=== PATIENT | female | born 1990 | race Caucasian/White ===

== ENCOUNTER 2020-04-16 00:18 | Outpatient (CLI) | payer OTHER, SELFPAY ==
[2020-04-16 18:34] LABS: SARS-CoV-2 RNA PCR Negative
== END 2020-04-16 00:19 | disposition home or self-care (01) ==
LOC: ANHCOVIDDT 00:18
PROVIDERS: Visit Provider Obstetrics & Gynecology Gynecology
DX: Z01.812 Encounter for preprocedural laboratory examination (principal); Z20.828 Contact with and (suspected) exposure to other viral communicable diseases
CPT/HCPCS: 87635; C9803; U0003

== ENCOUNTER 2020-04-19 00:58 | Day surgery (SDC) | payer OTHER, SELFPAY ==
[2020-03-31 15:51] VITALS: BMI 25.0
[2020-04-19] VITALS (7 sets, daily range): BP systolic 98–118; BP diastolic 60–65; PULSE 50–75; RESP 12–15; TEMP 36.4; O2SAT 100
--- NOTE | 2020-04-19 07:29 | P.HP_ITS ---
History of Present Illness History of Present Illness Consent: Risks, benefits, and alternatives have been discussed and questions answered. Patient agrees to proceed with procedure. Chief complaint: Requests Sterilization Narrative: Prerna Galvin is a 29 year old female A1 who has completed her childbearing and want to proceed with permanent sterilization. Reviewed risks of infection, bleeding, injury to internal organs, failure with increased ectopic, and general anesthesia. Discussed this is a permanent and irreversible sterilizing procedure. Patient voiced understanding and agrees to proceed. PMFSH Past Medical History Medical History (Updated 04/19/20 @ 07:33 by Lisette Beyer MD) (normal spontaneous vaginal delivery) x 3 Surgical History Surgical History (Updated 04/19/20 @ 07:32 by Lisette Beyer MD) H/O rhinoplasty Social History Social History Smoking status: Never smoker Alcohol intake: current Drinks per week: 1 Substance use: never Substance use type: does not use Living arrangements: with family Gender identity (if verbalized by the patient): Female Spiritual care concerns: No Meds Home Medications and Allergies Home Medications Medication Instructions Recorded Confirmed Type levonorgestrel-ethinyl estrad 1 tablet PO DAILY 03/31/20 03/31/20 History [Vienva] multivitamin [Daily Multi-Vitamin] 1 tablet PO DAILY 03/31/20 03/31/20 History Allergies Allergy/AdvReac Type Severity Reaction Status Date / Time No Known Allergies Allergy Mild Unverified 03/31/20 16:09 Exam Const: General: healthy appearing and alert Orientation/consciousness: patient oriented x3 Resp: Effort & Inspection: normal respiratory effort Auscultation: clear to auscultation bilaterally Cardio: Rate: regular rate Rhythm: regular rhythm GI: GI Palp: Yes Soft to palpation, No Tenderness to palpation present (GI) and No Palpable mass present : External Female Exam: normal external appearance Speculum Exam - Va elif: normal appearance of the vagina and normal vaginal discharge Speculum Exam - Cervix: normal appearance of the cervix Bimanual exam- vagina & uterus: uterine size normal and consistency normal Bimanual Exam- Adnexa, other: normal adnexae and No adnexal tenderness Neuro: General: patient oriented x3 Assessment and Plan Assessment and plan (1) Encounter for sterilization: Code(s): Z30.2 - Encounter for sterilization Status: Acute Assessment and Plan: Plan to proceed with laparoscopic BTL.
[2020-04-19] MEDS: LACTATED RINGERS 1,000 ML 30 ML IV CONT ×2 (08:05→10:26)
--- NOTE | 2020-04-19 09:05 | WPDANESEPPF ---
Anes - Initial Pre Proc Eval Procedure: Operation Date: 04/19/20 09:30 Proposed Procedures p Laparoscopic Bilateral Tubal Ligation With Fallopian Rings - Lisette Beyer MD Date/Time: 04/19/20 09:05 Surgeon: Lisette Beyer MD Pre Op Diagnosis: Requests Sterilization Patient Data Age: 29 Gender: F Height: 5 ft 1 in Weight: 56.2 kg Allergies Allergy/AdvReac Type Severity Reaction Status Date / Time No Known Allergies Allergy Mild Unverified 04/19/20 08:12 Home Medications Medication Instructions Recorded Confirmed Type levonorgestrel-ethinyl estrad 1 tablet PO DAILY 03/31/20 04/19/20 History [Vienva] multivitamin [Daily Multi-Vitamin] 1 tablet PO DAILY 03/31/20 04/19/20 History Patient hx anesthesia problems: none Family hx anesthesia problems: none PMFSH Past Medical History Medical History (Updated 04/19/20 @ 07:33 by Lisette Beyer MD) (normal spontaneous vaginal delivery) x 3 Surgical History Surgical History (Updated 04/19/20 @ 07:32 by Lisette Beyer MD) H/O rhinoplasty Social History Social History Smoking status: Never smoker Alcohol intake: current Drinks per week: 1 Substance use: never Substance use type: does not use Living arrangements: with family Gender identity (if verbalized by the patient): Female Spiritual care concerns: No Anes - Eval Final PreProcedure Day of Procedure 04/19/20 09:05 Patient weight: normal Heart: regular rate and rhythm Lungs: clear to auscultation Airway: Mallampati scale class II Neurological: alert and oriented Last oral intake: >/= 8 hours ASA classification: II Emergent: no Anesthetic plan: proceed Anesthesia type and monitoring: general ETT and standard monitoring Informed Consent: The patient's anesthetic plan and its attendant risks and benefits were discussed with the patient/family/POA. Questions were solicited and answers provided to the satisfaction of the patient/family/POA.
[2020-04-19] MEDS: KETOROLAC 15 MG/ML VIAL (*BKC) IV PUSH (09:09)
[2020-04-19] MEDS: ACETAMINOPHEN 500 MG TABLET 1000 MG PO (09:09)
--- NOTE | 2020-04-19 10:24 | PM.PROC ---
Procedure Note - Detailed Date of procedure: 04/19/20 Pre-op diagnosis: Requests Sterilization Post-op diagnosis: same Procedure performed: Laparoscopic bilateral tubal ligation with Falope rings Description of procedure: The patient is taken to the operating room, placed under general anesthesia, and in the dorsal lithotomy position. She is prepped and draped in a sterile fashion. The bivalve speculum was placed in the vagina, cervix was grasped on the anterior lip with a tenaculum and the acorn manipulator was placed. The speculum is removed and the attention was turned to the abdomen. A vertical skin incision was made at the base of the umbilicus the abdomen is tented and the Veress needle placed. The opening patient pressure was 5millimeters of mercury and pneumoperitoneum was obtained to a patient pressure of 15millimeters of mercury. The Veress needle was then removed and the 5millimeter Optiview trocar placed. Intra-abdominal placement is confirmed with the laparoscope. The patient is placed in Trendelenburg and and 8millimeters skin incision is made 2centimeters above the symphysis pubis. The 8millimeter trocar is placed under direct visualization. The blunt probe was used to bring the tubes into view of the surgical field. The right tube was then grasped with the ring applicator and the ring was applied. A good loop of tube was noted within the applicator. The left tube was grasped with a ring applicator and a good loop of the left tube was noted within the applicator. Upon placing the left ring, the peritoneum surrounding the tube tore and required cautery for hemostasis. All instruments were then removed. Pneumoperitoneum was reduced and the skin incisions closed with 4-0 vicryl. Vaginal instruments are removed and then patient awakened from anesthesia. Anesthesia: GETA Surgeon: Lisette Beyer MD Estimated blood loss (mL): 5 Drains: No Packing: No Pathology: none sent Complications: No immediate complications Condition: stable Disposition: PACU Findings: normal-appearing tubes ovaries and uterus
== END 2020-04-19 12:18 | disposition home or self-care (01) ==
PROVIDERS: Visit Provider Obstetrics & Gynecology Gynecology
PROC: (CPT 58671; principal; 2020-04-19 09:30)
DX: Z30.2 Encounter for sterilization (principal)
CPT/HCPCS: 58671; A4264; A9270; J0330; J1100; J1170; J1885; J2250; J2405; J2704; J3010; J7120

== ENCOUNTER 2020-04-25 11:05 | Inpatient (IN) | payer OTHER, SELFPAY ==
--- NOTE | 2020-04-25 11:05 | ADMGEN ---
This patient, Prerna Galvin, was admitted to Medical Room 341-01. Patient/family oriented to hospital policies and general routines including ID bracelet, bed and alarms, visiting hours, pain management, procedures, bathroom and other care routines, personal items, smoking policy, room service/diet, and visiting hours. Valuables list has been completed. Information on how to activate the Rapid Response Team has been discussed. Patient/Family are encouraged to report perceived risks to care and to ask questions if they do not understand what they are told or what they should do.
[2020-04-25 11:21] VITALS: BP 104/55; PULSE 62; RESP 18; TEMP 36.9; O2SAT 100; BMI 25.9
[2020-04-25] MEDS: DEXTROSE 5%/LACTATED RINGERS 1,000 ML 150 ML IV CONT ×2 (11:38→18:15)
[2020-04-25 11:59] LABS: Alanine Aminotransferase 10 U/L (4-35); Albumin Level 2.9 g/dL (3.5-5.1); Alkaline Phosphatase 29 U/L (38-126); Anion Gap 1 mmol/L (8-16); Aspartate Amino Transferase 12 U/L (14-36); Bilirubin,Total 0.4 mg/dL (0.2-1.3); Blood Urea Nitrogen 8 mg/dL (7-17); Calcium 7.7 mg/dL (8.4-10.2); Carbon Dioxide 24 mmol/L (22-30); Chloride 109 mmol/L (98-107); Estimated CRCL calculation 118 ml/min; Estimated Glomerular Filt Rate > 60; Glucose 87 mg/dL (65-105); Potassium 4.1 mmol/L (3.4-5.0); Sodium 134 mmol/L (137-145)
[2020-04-25] MEDS: METOCLOPRAMIDE HCL INJ 10 MG/2 ML VIAL IV PUSH ×2 (12:20→21:05)
[2020-04-25 14:00] VITALS: BP 101/56; PULSE 53; RESP 18; TEMP 37.2; O2SAT 100
[2020-04-25 19:47] VITALS: BP 108/72; PULSE 75; RESP 16; TEMP 36.8; O2SAT 100
[2020-04-25] MEDS: IBUPROFEN IV 800 MG/200 ML 800 MG/200 ML BAG 400 MG IVPB (21:10)
--- NOTE | 2020-04-25 23:27 | PM.IMHP ---
H&P: HPI History of Present Illness Date/Time: 04/25/20 23:27 Chief complaint: post op ileus Narrative: Prerna Galvin is a 29 year old female underwent a laparoscopic tubal ligation with Dr. Beyer. Patient reports mild constipation Sunday and normal bowel movement . patient report eating an premade meal from the grocery store Sunday and feeling ill. patient reports uncontrollable nausea and vomitting with excruciating abdominal pains. patient denies fever however felt some chill and sweats. Patient mira to [facility] ER This Am and ct showedacute gastroparesis and ileus. Dr. Carrizales called from [facility] for transfer of patient and admitance. Patient received Dilaudid for pain aand IV fluids from prior hospital Review of Systems Constitutional: Constitutional: Reports chills and Reports excessive sweating Cardiovascular: Cardiovascular: Reports no additional cardiovascular complaints Gastrointestinal: Gastrointestinal: Reports as per HPI [facility] Past Medical History Medical History (Updated 04/25/20 @ 23:38 by Abdi Smith MD) Gastroparesis Ileus (normal spontaneous vaginal delivery) x 3 Surgical History Surgical History H/O rhinoplasty Social History Social History Smoking status: Never smoker Alcohol intake: never Drinks per week: 1 Substance use: never Substance use type: does not use Gender identity (if verbalized by the patient): Female Spiritual care concerns: No Meds Home Medications and Allergies Home Medications Medication Instructions Recorded Confirmed Type No Home Medications 04/25/20 04/25/20 History Allergies Allergy/AdvReac Type Severity Reaction Status Date / Time No Known Allergies Allergy Mild Unverified 04/19/20 08:12 Vital Signs Vital Signs - 24 hr 04/25/20 11:21 04/25/20 14:00 04/25/20 19:47 Temperature 36.9 C 37.2 C 36.8 C Pulse Rate 62 53 L 75 Respiratory Rate 18 18 16 Blood Pressure 104/55 L 101/56 L 108/72 Pulse Oximetry 100 100 100 Exam Const: General: uncomfortable Resp: Effort & Inspection: normal respiratory effort Auscultation: clear to auscultation bilaterally GI: GI Palp: Yes Soft to palpation and Yes Tenderness to palpation present (GI) (epigastric pain, incision healing well at umbilicus and pubic bone) Auscultation: abnormal bowel sounds Psych: Mental Status: mental status grossly normal H&P: Results Labs Labs: [facility] 04/25/20 11:43 Sodium 134 L Potassium 4.1 Chloride 109 H Carbon Dioxide 24 BUN 8 Creatinine 0.50 L Glucose 87 Calcium 7.7 L Liver Function 04/25/20 Range/Units 11:43 Total Bilirubin 0.4 (0.2-1.3) mg/dL AST 12 L (14-36) U/L ALT 10 (4-35) U/L Alkaline Phosphatase 29 L (38-126) U/L Albumin 2.9 L (3.5-5.1) g/dL Assessment and Plan Assessment and plan (1) Ileus: Code(s): K56.7 - Ileus, unspecified Status: Acute Assessment and Plan: uncertain if postoperativee, narcotics or diet. Continue NPO and IV fluids. Reglan q8 hours and zofran PRN, consider NG tube if irretractible vomitting. iburpfen for inflamation and pain.consider repeat imaging if no improvement. (2) Gastroparesis: Code(s): K31.84 - Gastroparesis Status: Acute
[2020-04-26] VITALS: BP 105/69; PULSE 94; RESP 18; TEMP 36.5; O2SAT 100
[2020-04-26] MEDS: DEXTROSE 5%/LACTATED RINGERS 1,000 ML 150 ML IV CONT ×2 (01:29→08:21)
[2020-04-26 04:00] VITALS: BP 113/65; PULSE 59; RESP 16; TEMP 36.8; O2SAT 100
--- NOTE | 2020-04-26 04:15 | PC.NURSE ---
Call to provider given about positive blood cultures for patient. No answer from provider (Dr. Carrillo) at this time. Will continue to try and reach the doctor to give information from the lab. Results given from lab are as follows: gram positive cocci in pairs/chains; gram variable cocci bacilli. Provider communication also charted in worklist.
[2020-04-26 06:05] LABS: Basophils Percent Auto 0.6 % (0.2-1.2); Eosinophils Absolute Auto 0.1 K/mm3 (0-0.3); Eosinophils Percent Auto 2.4 % (0-4.4); Hematocrit 28.3 % (37.0-47.0); Hemoglobin 8.6 g/dL (12.0-15.0); Immature Granulocyte Absolute 0.01 K/mm3 (0.00-0.031); Immature Granulocyte Percent A 0.3 % (0-0.5); Lymphocytes Percent Auto 51.4 % (18.3-44.2); Mean Corpuscular HGB Conc 30.4 g/dl (32-36); Mean Corpuscular Hemoglobin 25.1 pg (26-34); Mean Corpuscular Volume 82.7 fl (80-100); Mean Platelet Volume 11.7 fl (7.4-10.4); Monocytes Absolute Auto 0.4 K/mm3 (0.1-0.6); Monocytes Percent Auto 11.5 % (2.6-8.5); Neutrophils Absolute Auto 1.1 K/mm3 (1.3-6.7); Neutrophils Percent Auto 33.8 % (45.5-73.1); Platelet Count Result 172 k/mm3 (150-375); Red Blood Count 3.42 M/mm3 (4.2-5.4); Red Cell Distribution Width 15.8 % (11.5-14.5); White Blood Count 3.3 K/mm3 (4.5-10.0)
[2020-04-26] MEDS: METOCLOPRAMIDE HCL INJ 10 MG/2 ML VIAL IV PUSH (06:17)
[2020-04-26 08:59] LABS: Basophils Percent Auto 0.7 % (0.2-1.2); Eosinophils Absolute Auto 0.1 K/mm3 (0-0.3); Eosinophils Percent Auto 2.4 % (0-4.4); Hematocrit 27.8 % (37.0-47.0); Hemoglobin 8.6 g/dL (12.0-15.0); Immature Granulocyte Absolute 0.01 K/mm3 (0.00-0.031); Immature Granulocyte Percent A 0.3 % (0-0.5); Lymphocytes Percent Auto 44.7 % (18.3-44.2); Mean Corpuscular HGB Conc 30.9 g/dl (32-36); Mean Corpuscular Hemoglobin 25.5 pg (26-34); Mean Corpuscular Volume 82.5 fl (80-100); Mean Platelet Volume 11.5 fl (7.4-10.4); Monocytes Absolute Auto 0.4 K/mm3 (0.1-0.6); Monocytes Percent Auto 12.7 % (2.6-8.5); Neutrophils Absolute Auto 1.1 K/mm3 (1.3-6.7); Neutrophils Percent Auto 39.2 % (45.5-73.1); Platelet Count Result 172 k/mm3 (150-375); Red Blood Count 3.37 M/mm3 (4.2-5.4); Red Cell Distribution Width 15.9 % (11.5-14.5); White Blood Count 2.9 K/mm3 (4.5-10.0)
[2020-04-26 09:12] LABS: Alanine Aminotransferase 9 U/L (4-35); Albumin Level 2.9 g/dL (3.5-5.1); Alkaline Phosphatase 28 U/L (38-126); Anion Gap 4 mmol/L (8-16); Aspartate Amino Transferase 12 U/L (14-36); Bilirubin,Total 0.2 mg/dL (0.2-1.3); Blood Urea Nitrogen 3 mg/dL (7-17); Carbon Dioxide 24 mmol/L (22-30); Chloride 110 mmol/L (98-107); Estimated CRCL calculation 118 ml/min; Estimated Glomerular Filt Rate > 60; Glucose 98 mg/dL (65-105); Potassium 3.8 mmol/L (3.4-5.0); Sodium 138 mmol/L (137-145)
--- NOTE | 2020-04-26 11:02 | PM.DS ---
DS: Admitting Diagnosis Admitting Diagnosis Admitting Diagnosis: post op ileus DS: Discharge Diagnosis Discharge Diagnosis (1) Gastroparesis: Code(s): K31.84 - Gastroparesis Status: Acute DS: Summary Hospital Course Reason for hospitalization: suspected post op ileus Hospital Course: Patient initially with abdominal pain and nausea with vomiting. Has not vomited since admit. Patient without pain. Tolerates diet and dc home Status at Discharge Functional status at discharge: independent ambulation Overall status at discharge: patient is progressing back to baseline Time Spent with Patient Time attestation: Total time spent providing and/or coordinating discharge services: DS: Data Data Completed and Pending Labs on day of discharge: Labs from last 24 hours 04/26/20 04/26/20 04/26/20 08:41 08:41 05:37 WBC 2.9 L 3.3 L RBC 3.37 L 3.42 L Hgb 8.6 L 8.6 L Hct 27.8 L 28.3 L MCV 82.5 82.7 MCH 25.5 L 25.1 L MCHC 30.9 L 30.4 L RDW 15.9 H 15.8 H Plt Count 172 172 MPV 11.5 H 11.7 H Immature Gran % (Auto) 0.3 0.3 Neut % (Auto) 39.2 L 33.8 L Lymph % (Auto) 44.7 H 51.4 H [place] % (Auto) 12.7 H 11.5 H Eos % (Auto) 2.4 2.4 Baso % (Auto) 0.7 0.6 Lymph # (Auto) 1.30 1.70 [place] # (Auto) 0.4 0.4 Eos # (Auto) 0.1 0.1 Baso # (Auto) 0.0 0.0 Abs Immat Gran (auto) 0.01 0.01 Absolute Neuts (auto) 1.1 L 1.1 L Absolute Nucleated RBC 0.0 0.0 Nucleated RBC % 0.0 0.0 Sodium 138 Potassium 3.8 Chloride 110 H Carbon Dioxide 24 Anion Gap 4 L BUN 3 L D Creatinine 0.50 L Estim Creat Clear Calc 118 Estimated GFR > 60 Glucose 98 Calcium 8.0 L Total Bilirubin 0.2 AST 12 L ALT 9 Alkaline Phosphatase 28 L Total Protein 5.0 L Albumin 2.9 L 04/25/20 11:43 WBC RBC Hgb Hct MCV MCH MCHC RDW Plt Count MPV Immature Gran % (Auto) Neut % (Auto) Lymph % (Auto) [place] % (Auto) Eos % (Auto) Baso % (Auto) Lymph # (Auto) [place] # (Auto) Eos # (Auto) Baso # (Auto) Abs Immat Gran (auto) Absolute Neuts (auto) Absolute Nucleated RBC Nucleated RBC % Sodium 134 L Potassium 4.1 Chloride 109 H Carbon Dioxide 24 Anion Gap 1 L BUN 8 Creatinine 0.50 L Estim Creat Clear Calc 118 Estimated GFR > 60 Glucose 87 Calcium 7.7 L Total Bilirubin 0.4 AST 12 L ALT 10 Alkaline Phosphatase 29 L Total Protein 5.0 L Albumin 2.9 L Discharge Plan Discharge Attending physician on discharge: Lisette Beyer Discharging Clinician: Lisette Beyer Anticipated Discharge Date/Time: 04/26/20 13:01 Patient Disposition: Home, Self-Care Activity: as tolerated Diet: regular Wound Care Instructions: incision open to air Patient Instructions: Antibiotic Form, Ileus (DC) Stand Alone Forms: General Discharge Information Follow-up/Referrals: Lisette Beyer MD [Physician] - Keep Reg. Scheduled Appt. Discharge Medications: No Action No Home Medications RF: 0 Date of admission: 04/25/20 11:05 Primary Care Provider: PHYSICIAN,FIRST AID INSTRUCTOR Admitting Provider: Abdi Smith Discharge Date/Time: 04/26/20 14:11 Attending physician on admission: Lisette Beyer Condition: Stable
--- NOTE | 2020-04-26 11:04 | PM.GYNPNOP ---
ASSISTANT PROFESSOR OF THEATER - A/P Assessment and plan (1) Gastroparesis: Code(s): K31.84 - Gastroparesis Status: Acute Assessment and Plan: suspect due to bad food patient ate all symptoms resolved regular diet now and if tolerates will dc home Time Spent With Patient Time: Total time spent is greater than 50% in coordination of care (as documented) at patient's floor/unit and/or counseling patient: Time with patient: less than 15 minutes ASSISTANT PROFESSOR OF THEATER- PN:Lisandro Post-Op Subjective Date/time seen: 04/26/20 11:04 Subjective: patient reports feeling better and other (no nausea or pain; hungry) Exam GI: Auscultation: normal bowel sounds Other: nt, nd, inc c/d/i ASSISTANT PROFESSOR OF THEATER - PN: Obj Data Vital Signs Vital Signs: Vital Signs - 24 hr 04/25/20 11:21 04/25/20 14:00 04/25/20 19:47 Temperature 98.5 F 98.9 F 98.3 F Pulse Rate 62 53 L 75 Respiratory Rate 18 18 16 Blood Pressure 104/55 L 101/56 L 108/72 Pulse Oximetry 100 100 100 04/26/20 00:00 04/26/20 04:00 Temperature 97.7 F 98.2 F Pulse Rate 94 59 L Respiratory Rate 18 16 Blood Pressure 105/69 113/65 Pulse Oximetry 100 100 Intake/Output Intake/Output: Intake & Output 04/23/20 04/24/20 04/25/20 04/26/20 23:59 23:59 23:59 23:59 Intake Total 1200 2000 Output Total 800 650 Balance 400 1350 Meds/Results Medications: Active Medications Generic Name Dose Route Start Last Admin Trade Name Freq PRN Reason Stop Dose Admin Bisacodyl 10 mg 04/25/20 11:24 Dulcolax Suppository RECTAL ONCE PRN Constipation Dextrose/Lactated Ringer's 1,000 mls @ 150 mls/hr 04/25/20 11:20 04/26/20 08:21 Dextrose 5%/Lactated Ringers IV CONT 150 mls/hr .[id number] EMELY Administration Ibuprofen 800 mg in 200 mls @ 400 mls/hr 04/25/20 11:24 04/25/20 21:40 Caldolor 800 Mg/200 Ml IVPB Infused Q6H PRN Infusion Pain Rated 4-6 Metoclopramide HCl 10 mg 04/25/20 11:25 04/26/20 06:17 Reglan IV PUSH 10 mg Q8HR EMELY Administration Ondansetron HCl 4 mg 04/25/20 11:24 Zofran Inj IV PUSH Q6H PRN Nausea Labs CBC & Chem 7: 04/26/20 08:41 04/26/20 08:41 Labs: Laboratory Results - last 24 hr 04/25/20 04/26/20 04/26/20 11:43 05:37 08:41 WBC 3.3 L 2.9 L RBC 3.42 L 3.37 L Hgb 8.6 L 8.6 L Hct 28.3 L 27.8 L MCV 82.7 82.5 MCH 25.1 L 25.5 L MCHC 30.4 L 30.9 L RDW 15.8 H 15.9 H Plt Count 172 172 MPV 11.7 H 11.5 H Immature Gran % (Auto) 0.3 0.3 Neut % (Auto) 33.8 L 39.2 L Lymph % (Auto) 51.4 H 44.7 H [place] % (Auto) 11.5 H 12.7 H Eos % (Auto) 2.4 2.4 Baso % (Auto) 0.6 0.7 Lymph # (Auto) 1.70 1.30 [place] # (Auto) 0.4 0.4 Eos # (Auto) 0.1 0.1 Baso # (Auto) 0.0 0.0 Abs Immat Gran (auto) 0.01 0.01 Absolute Neuts (auto) 1.1 L 1.1 L Absolute Nucleated RBC 0.0 0.0 Nucleated RBC % 0.0 0.0 Sodium 134 L Potassium 4.1 Chloride 109 H Carbon Dioxide 24 Anion Gap 1 L BUN 8 Creatinine 0.50 L Estim Creat Clear Calc 118 Estimated GFR > 60 Glucose 87 Calcium 7.7 L Total Bilirubin 0.4 AST 12 L ALT 10 Alkaline Phosphatase 29 L Total Protein 5.0 L Albumin 2.9 L 04/26/20 08:41 WBC RBC Hgb Hct MCV MCH MCHC RDW Plt Count MPV Immature Gran % (Auto) Neut % (Auto) Lymph % (Auto) [place] % (Auto) Eos % (Auto) Baso % (Auto) Lymph # (Auto) [place] # (Auto) Eos # (Auto) Baso # (Auto) Abs Immat Gran (auto) Absolute Neuts (auto) Absolute Nucleated RBC Nucleated RBC % Sodium 138 Potassium 3.8 Chloride 110 H Carbon Dioxide 24 Anion Gap 4 L BUN 3 L D Creatinine 0.50 L Estim Creat Clear Calc 118 Estimated GFR > 60 Glucose 98 Calcium 8.0 L Total Bilirubin 0.2 AST 12 L ALT 9 Alkaline Phosphatase 28 L Total Protein 5.0 L Albumin 2.9 L
== END 2020-04-26 14:11 | disposition home or self-care (01) | DRG 392 ==
PROVIDERS: Admitting Provider Obstetrics & Gynecology; Visit Provider Obstetrics & Gynecology Gynecology
DX: K31.84 Gastroparesis (principal)
CPT/HCPCS: 36415; 80053; 85025; J1741; J2765; J7121